=== PATIENT | female | born 1965 | race Two or more races ===

== ENCOUNTER 2020-07-04 07:54 | Outpatient (CLI) | payer OTHER, SELFPAY | END 2020-07-04 07:55 | disposition home or self-care (01) | LOC: ANHAUDIO 07:55 | PROVIDERS: PCP Nurse Practitioner Adult Health; Visit Provider Nurse Practitioner Adult Health | DX: H90.3 Sensorineural hearing loss, bilateral (principal) | CPT/HCPCS: 92557; 92567 ==

== ENCOUNTER 2020-07-17 13:25 | Outpatient (RCR) | payer OTHER, SELFPAY | END 2020-07-17 23:59 | disposition home or self-care (01) | LOC: ANHAUDIO 13:25 | PROVIDERS: PCP Nurse Practitioner Adult Health; Visit Provider Nurse Practitioner Adult Health | DX: Z46.1 Encounter for fitting and adjustment of hearing aid (principal) | CPT/HCPCS: V5160; V5261 ==

== ENCOUNTER 2021-08-01 08:55 | Outpatient (CLI) | payer OTHER, SELFPAY ==
--- NOTE | 2021-08-01 11:17 | P.NEURO_ITS ---
Neurology EEG Report General Information Date of Study: 08/01/21 TEST eeg DIAGNOSIS symptomatic epilepsy CONDITION OF RECORDING awake drowsy and sleep EEG NUMBER [id number] CLINICAL HISTORY patient has had epilepsy since childhood and at present her seizures are getting worse EEG DESCRIPTION basic resting occipital frequency consists of 15 to 18 hertz per 2nd low voltage beta activity during drowsiness with bilateral symmetrical sleep activ ity during sleep. very brief periods of wakefulness noted. Left-sided asymmetrical low voltage 5 to 7 hertz per 2nd theta activity noted. hyperventilation not done .photic stimulation produced normal drive. Non paroxysmal. Focal. Lateralizing. IMPRESSION Only questionably abnormal record due to the presence of asymmetrical theta activity over the left hemisphere. These abnormalities are suggestive of organic a metabolic encephalopathy with left hemispheric focus clinical correlation recommended there is no evidence of paroxysmal discharge throughout the tracing
== END 2021-08-01 08:56 | disposition home or self-care (01) ==
PROVIDERS: PCP Nurse Practitioner Adult Health; Visit Provider Psychiatry & Neurology Neurology
DX: G40.909 Epilepsy, unspecified, not intractable, without status epilepticus (principal); R94.01 Abnormal electroencephalogram [EEG]
CPT/HCPCS: 95816